=== PATIENT | male | born 1955 | race Caucasian/White ===

== ENCOUNTER 2016-11-11 08:32 | Emergency (ER) | payer BC ==
[~2016-11-11] VITALS: Ht 180.3 cm; Wt 113.6 kg
[~2016-11-11 08:32] MED LIST: CIPRO500 MG PO; Claritin,Alavart PO; FLAGYL500 MG PO; LO-DOSE ASPIRIN81 M2 PO; LOSARTAN-HCTZ1 EACH PO; METFORMIN HCL500 MG PO; NOHOMEMEDS; OXAYDO5 MG PO; PRAVASTATIN SOD40 MG PO
[2016-11-11] MEDS ORDERED: MOTRIN800 MG PO (10:44)
[2016-11-11 11:37] VITALS: BP 136/89
== END 2016-11-11 11:38 | disposition home or self-care (01) ==
LOC: EME 08:32
DX: S83.91XA Sprain of unspecified site of right knee, initial encounter (principal); X50.9XXA Other and unspecified overexertion or strenuous movements or postures, initial encounter; Y93.89 Activity, other specified; I10 Essential (primary) hypertension; E11.9 Type 2 diabetes mellitus without complications; Z79.84 Long term (current) use of oral hypoglycemic drugs
CPT/HCPCS: 73564; 99281; 99284

== ENCOUNTER 2018-04-16 20:12 | Observation (INO) | payer BC ==
[~2018-04-16] VITALS: Ht 180.3 cm; Wt 116.5 kg
[~2018-04-16 20:12] MED LIST changes: +MOTRIN800 MG PO
[2018-04-16 21:18] LABS: HEMATOCRIT 42.1 % (38.0-50.0); HEMOGLOBIN 14.6 G/DL (12.5-16.6); MCH 29.4 PG (29.0-34.0); MCHC 34.7 G/DL (30.0-36.0); MCV 84.9 FL (86-99); PLATELET COUNT 259 K/uL (156-360); RBC DIS.WIDTH-CV 12.9 % (11.8-14.6); RBC DIS.WIDTH-SD 39.2 % (39-53); RED BLOOD COUNT 4.96 M/uL (4.00-5.50); WHITE BLOOD COUNT 9.3 K/uL (4.1-10.2)
[2018-04-16 21:40] LABS: CHLORIDE 107 mEq/L (99-109); POTASSIUM 4.1 mEq/L (3.7-5.4); SODIUM 140 mEq/L (136-147)
[2018-04-16 21:41] LABS: GLUCOSE 159 mg/dL (70-99)
[2018-04-16 21:45] LABS: CREATININE 1.6 mg/dL (0.6-1.3); GFR ESTIMATE (CALCULATED) 47 mL/min/ (58.99-99999)
[2018-04-16 21:46] LABS: UREA NITROGEN (BUN) 27 mg/dL (9-23)
[2018-04-16 21:49] LABS: TROP-I INTERPRETATION NEGATIVE; TROPONIN-I < 0.01 ng/mL (0.0-0.30)
[2018-04-16 21:56] LABS: D-DIMER ELISA < 150.00 ng/mLDDU (<230)
[2018-04-16] MEDS ORDERED: METOPROLOL SUCC25 MG PO (23:03)
[2018-04-16] MEDS ORDERED: FENOFIBRATE160 M1 PO (23:04)
[2018-04-16] MEDS ORDERED: ROSUVASTATIN CAL5 MG PO (23:04)
[2018-04-16] MEDS ORDERED: CLARITIN10 MG PO (23:04)
[2018-04-17 00:40] VITALS: BP 123/73
[2018-04-17 04:24] VITALS: BP 131/70
[2018-04-17 05:33] LABS: HEMATOCRIT 41.1 % (38.0-50.0); HEMOGLOBIN 13.9 G/DL (12.5-16.6); MCH 29.3 PG (29.0-34.0); MCHC 33.8 G/DL (30.0-36.0); MCV 86.5 FL (86-99); PLATELET COUNT 203 K/uL (156-360); RBC DIS.WIDTH-CV 12.9 % (11.8-14.6); RBC DIS.WIDTH-SD 40.4 % (39-53); RED BLOOD COUNT 4.75 M/uL (4.00-5.50); WHITE BLOOD COUNT 7.5 K/uL (4.1-10.2)
[2018-04-17 05:53] LABS: CHLORIDE 106 MEQ/L (99-109); CREATININE 1.3 MG/DL (0.6-1.3); GFR ESTIMATE (CALCULATED) > 59 mL/min/ (58.99-99999); GLUCOSE 132 mg/dL (70-99); POTASSIUM 3.9 MEQ/L (3.7-5.4); SODIUM 140 MEQ/L (136-147); UREA NITROGEN (BUN) 17 mg/dL (9-23)
[2018-04-17 06:00] LABS: TROP-I INTERPRETATION NEGATIVE; TROPONIN-I < 0.01 ng/mL (0.0-0.30)
[2018-04-17 07:54] VITALS: BP 136/79
[2018-04-17 11:24] VITALS: BP 139/67
[2018-04-17 12:50] LABS: TROP-I INTERPRETATION NEGATIVE; TROPONIN-I < 0.01 ng/mL (0.0-0.30)
== END 2018-04-17 13:24 | disposition home or self-care (01) ==
LOC: EME 20:12 → EDOF 22:57 → 4SOUTH 22:57 → ENRESERV 23:03 → 4SOUTH 04-17 00:31
PROVIDERS: Emergency Medicine; Hospitalist
DX: R07.89 Other chest pain (principal); R06.02 Shortness of breath; E11.9 Type 2 diabetes mellitus without complications; I10 Essential (primary) hypertension; E78.5 Hyperlipidemia, unspecified; J84.10 Pulmonary fibrosis, unspecified; E66.9 Obesity, unspecified; Z68.35 Body mass index [BMI] 35.0-35.9, adult; Z82.0 Family history of epilepsy and other diseases of the nervous system; Z79.82 Long term (current) use of aspirin; Z79.84 Long term (current) use of oral hypoglycemic drugs; Z88.5 Allergy status to narcotic agent
CPT/HCPCS: 71046; 80048; 83880; 84484; 85027; 85379; 93005; 94799; 99281; 99284; G0378